=== PATIENT | female | born 1970 | race Caucasian/White ===

== ENCOUNTER 2019-05-28 10:30 | Outpatient (CLI) | payer MEDICAID ==
[2019-05-28] MEDS ORDERED: METH5TAB2 PO (11:33)
[2019-05-28 11:34] LABS: BASOPHILS % (AUTO) 0.5 % (0-1); EOSINOPHILS # (AUTO) 0.1 X10'3 (0-0.9); EOSINOPHILS % (AUTO) 1.3 % (0-6); LYMPHOCYTES # (AUTO) 1.3 X10'3 (1.1-4.8); LYMPHOCYTES % (AUTO) 22.8 % (21-51); MEAN CORPUSCULAR HEMOGLOBIN 29.2 PG (27.0-31.0); MEAN CORPUSCULAR HGB CONC 33.4 g/dL (33.0-36.5); MEAN CORPUSCULAR VOLUME 87.5 FL (78-98); MEAN PLATELET VOLUME 7.4 FL (7.4-10.4); MONOCYTES # (AUTO) 0.3 X10'3 (0-0.9); MONOCYTES % (AUTO) 5.8 % (2-12); NEUTROPHILS # (AUTO) 3.9 X10'3 (1.8-7.7); NEUTROPHILS % (AUTO) 69.6 % (42-75); PRE OP HEMOGLOBIN 13.7 g/dL (12.0-16.0); PRE OP PLATELET COUNT 258 X10'3 (140-440); RED BLOOD COUNT 4.69 X10'6 (4.20-5.60); RED CELL DISTRIBUTION WIDTH 14.3 % (11.5-14.5)
[2019-05-28 11:51] LABS: ALBUMIN 3.4 G/DL (3.4-5.0); ALBUMIN/GLOBULIN RATIO 0.9 (1.1-1.5); ALKALINE PHOSPHATASE 63 IU/L (46-116); BLOOD UREA NITROGEN 13 MG/DL (7-18); BUN/CREATININE RATIO 13.5 (6.6-38.0); CALCIUM 8.7 MG/DL (8.5-10.1); CHLORIDE 107 MMOL/L (99-107); CREATININE 0.96 MG/DL (0.40-0.90); PRE OP ALT 6 U/L (30-65); PRE OP ANION GAP 3 (8-16); PRE OP AST 16 U/L (10-37); PRE OP BILIRUB, TOTAL 0.2 MG/DL (0.0-1.0); PRE OP GLUCOSE 104 MG/DL (70-104); PRE OP POTASSIUM 4.4 MMOL/L (3.4-5.1); PRE OP SODIUM 141 MMOL/L (135-145); TOTAL PROTEIN 7.2 G/DL (6.4-8.2); eGFR 62 ML/MIN
== END 2019-05-28 23:59 | disposition home or self-care (01) ==
LOC: PRE-OP 10:30 → EDSTATUS 06-04 09:00
PROVIDERS: ATTEND Orthopaedic Surgery Hand Surgery
DX: Z01.818 Encounter for other preprocedural examination (principal); G56.01 Carpal tunnel syndrome, right upper limb; M65.321 Trigger finger, right index finger; M65.331 Trigger finger, right middle finger; M65.322 Trigger finger, left index finger; M65.332 Trigger finger, left middle finger
CPT/HCPCS: 36415; 80053; 85025; 93005

== ENCOUNTER 2019-08-23 08:06 | Day surgery (SDC) | payer MEDICAID ==
[2019-08-17 12:00] LABS: BASOPHILS % (AUTO) 0.4 % (0-1); EOSINOPHILS # (AUTO) 0.1 X10'3 (0-0.9); EOSINOPHILS % (AUTO) 1.2 % (0-6); LYMPHOCYTES % (AUTO) 30.7 % (21-51); MEAN CORPUSCULAR HEMOGLOBIN 29.6 PG (27.0-31.0); MEAN CORPUSCULAR HGB CONC 33.1 g/dL (33.0-36.5); MEAN CORPUSCULAR VOLUME 89.5 FL (78-98); MEAN PLATELET VOLUME 7.9 FL (7.4-10.4); MONOCYTES # (AUTO) 0.5 X10'3 (0-0.9); MONOCYTES % (AUTO) 7.4 % (2-12); NEUTROPHILS % (AUTO) 60.3 % (42-75); PRE OP HEMATOCRIT 40.5 % (35.0-45.0); PRE OP HEMOGLOBIN 13.4 g/dL (12.0-16.0); PRE OP PLATELET COUNT 225 X10'3 (140-440); RED BLOOD COUNT 4.52 X10'6 (4.20-5.60); RED CELL DISTRIBUTION WIDTH 14.4 % (11.5-14.5)
[2019-08-17 12:09] LABS: ALBUMIN 3.4 G/DL (3.4-5.0); ALBUMIN/GLOBULIN RATIO 0.9 (1.1-1.5); ALKALINE PHOSPHATASE 66 IU/L (46-116); BLOOD UREA NITROGEN 9 MG/DL (7-18); BUN/CREATININE RATIO 10.2 (6.6-38.0); CALCIUM 8.6 MG/DL (8.5-10.1); CHLORIDE 104 MMOL/L (99-107); CREATININE 0.88 MG/DL (0.40-0.90); PRE OP ALT 12 U/L (30-65); PRE OP ANION GAP 7 (8-16); PRE OP AST 15 U/L (10-37); PRE OP BILIRUB, TOTAL 0.4 MG/DL (0.0-1.0); PRE OP GLUCOSE 79 MG/DL (70-104); PRE OP POTASSIUM 4.3 MMOL/L (3.4-5.1); PRE OP SODIUM 142 MMOL/L (135-145); TOTAL CARBON DIOXIDE 30.6 MMOL/L (24-32); TOTAL PROTEIN 7.3 G/DL (6.4-8.2); eGFR 68 ML/MIN
[2019-08-23] VITALS (15 sets, daily range): BP systolic 96–113; BP diastolic 61–70
[~2019-08-23] VITALS: Ht 167.6 cm; Wt 75.8 kg
[~2019-08-23 08:06] MED LIST: BACI1TAB8 PO; METH5TAB2 PO; ceFAZolin 2gm in dextrose, iso 50 ML IV ONE; famotidine 20mg tablet PO ONE; ringers solution, lacted 1,000 ML IV SCH
[2019-08-23] MEDS ORDERED: BUPIVAcaine/PF 2.5mg/ml (0.25%) 10ml vial ONE (08:51)
[2019-08-23] MEDS ORDERED: ringers solution, lacted 1,000 ML IV SCH ×2 (11:21→12:14)
[2019-08-23] MEDS ORDERED: morphine 2 MG/ML inj. syringe IV PRN ×2 (11:25→12:15)
[2019-08-23] MEDS ORDERED: proCHLORperazine 10 MG/2 ml inj IV PRN (11:25)
[2019-08-23] MEDS ORDERED: meperidine/PF 25mg/ml syringe IV PRN ×3 (11:25)
[2019-08-23] MEDS ORDERED: morphine 4 MG/ML inj SYRINge IV PRN ×2 (11:25→12:15)
[2019-08-23] MEDS ORDERED: ondansetron/PF 4mg/2ml inj IV PRN ×2 (11:25→12:15)
[2019-08-23] MEDS ORDERED: acetaminophen 1,000mg/100ml IV 100 ML IV PRN (11:25)
[2019-08-23] MEDS ORDERED: fentaNYL/PF 50MCG/1 ML 2ML syringe ONE ×2 (11:54→11:57)
[2019-08-23] MEDS ORDERED: midazolam 2 mg/2 ml injection ONE (11:54)
[2019-08-23] MEDS ORDERED: MIDAZolam 1mg/ml 10ml vial ONE (11:57)
[2019-08-23] MEDS ORDERED: hydrALAZINE 20mg/ml inj. IV PRN (12:15)
[2019-08-23] MEDS ORDERED: labetalol 20mg/4ml (5mg/ml) syringe IV PRN (12:15)
[2019-08-23] MEDS ORDERED: fentaNYL/PF 50MCG/1 ML 2ML syringe IV PRN ×2 (12:15)
--- NOTE | 2019-08-23 12:20 | NUR ---
RECEIVED FROM OR VIA [facility] ACCOMPANIED BY ANESTHESIOLOGIST DR DURBIN, REPORT GIVEN. PT SLEEPING WITHOUT COMPLAINT OF PAIN. 20 GAUGE PIV L WRIST PATENT AND RUNNING LR AT 100 ML HR.XEROFORM, WEBRIL,KERLIX, BIAS DRESSING TO RIGHT HAND CDI, R UE ELEVATED AND ICE APPLIED. VSS, SKIN PINK AND WARM, QUINTERO, GOOD CAP REFILL.
--- NOTE | 2019-08-23 14:40 | NUR ---
AWAKE AND ALERT WITHOUT COMPLAINT OF PAIN. 20 GAUGE PIV L WRIST DC/D WITH CATH TIP INTACT .XEROFORM, WEBRIL,KERLIX, BIAS DRESSING TO RIGHT HAND CDI, R UE ELEVATED AND ICE APPLIED. VSS, SKIN PINK AND WARM, QUINTERO, GOOD CAP REFILL. TOLERATING FLUIDS. DISCHARGE INSTRUCTIONS GIVEN AND PT VERBALIZED UNDERSTANDING. TRANSPORTED VIA WHEELCHAIR TO TRANSPORT VAN, TO HOME.
== END 2019-08-23 14:40 | disposition home or self-care (01) ==
LOC: PAS 08:06
PROVIDERS: ATTEND Orthopaedic Surgery Hand Surgery
DX: G56.01 Carpal tunnel syndrome, right upper limb (principal); M65.321 Trigger finger, right index finger; M65.331 Trigger finger, right middle finger; Z11.59 Encounter for screening for other viral diseases; F43.10 Post-traumatic stress disorder, unspecified; F17.210 Nicotine dependence, cigarettes, uncomplicated; F41.9 Anxiety disorder, unspecified; F32.9 Major depressive disorder, single episode, unspecified; M19.90 Unspecified osteoarthritis, unspecified site; Z88.8 Allergy status to other drugs, medicaments and biological substances; Z79.899 Other long term (current) drug therapy; Z98.890 Other specified postprocedural states
CPT/HCPCS: 26055; 29848; 36415; 80053; 82948; 85025; J2250; J3010; J3490; U0003; A4215; A7000; J7120

== ENCOUNTER 2020-07-24 05:58 | Day surgery (SDC) | payer MEDICAID ==
[2020-07-17 10:27] LABS: BASOPHILS % (AUTO) 0.4 % (0-1); EOSINOPHILS # (AUTO) 0.1 X10'3 (0-0.9); EOSINOPHILS % (AUTO) 1.8 % (0-6); LYMPHOCYTES # (AUTO) 1.8 X10'3 (1.1-4.8); LYMPHOCYTES % (AUTO) 40.1 % (21-51); MEAN CORPUSCULAR HEMOGLOBIN 29.4 PG (27.0-31.0); MEAN CORPUSCULAR HGB CONC 32.9 g/dL (33.0-36.5); MEAN CORPUSCULAR VOLUME 89.5 FL (78-98); MONOCYTES # (AUTO) 0.3 X10'3 (0-0.9); MONOCYTES % (AUTO) 6.9 % (2-12); NEUTROPHILS # (AUTO) 2.3 X10'3 (1.8-7.7); NEUTROPHILS % (AUTO) 50.8 % (42-75); PRE OP HEMATOCRIT 41.1 % (35.0-45.0); PRE OP HEMOGLOBIN 13.5 g/dL (12.0-16.0); PRE OP PLATELET COUNT 244 X10'3 (140-440); RED BLOOD COUNT 4.59 X10'6 (4.20-5.60); RED CELL DISTRIBUTION WIDTH 13.9 % (11.5-14.5)
[2020-07-17 10:55] LABS: ALBUMIN 3.4 G/DL (3.4-5.0); ALBUMIN/GLOBULIN RATIO 0.9 (1.1-1.5); ALKALINE PHOSPHATASE 74 IU/L (46-116); BLOOD UREA NITROGEN 12 MG/DL (7-18); BUN/CREATININE RATIO 13.5 (6.6-38.0); CALCIUM 8.3 MG/DL (8.5-10.1); CHLORIDE 104 MMOL/L (99-107); CREATININE 0.89 MG/DL (0.40-0.90); PRE OP ANION GAP 6 (8-16); PRE OP AST 20 U/L (10-37); PRE OP BILIRUB, TOTAL 0.3 MG/DL (0.0-1.0); PRE OP GLUCOSE 82 MG/DL (70-104); PRE OP POTASSIUM 4.4 MMOL/L (3.4-5.1); PRE OP SODIUM 140 MMOL/L (135-145); TOTAL CARBON DIOXIDE 30.2 MMOL/L (24-32); TOTAL PROTEIN 7.1 G/DL (6.4-8.2); eGFR 67 ML/MIN
[2020-07-17 11:05] LABS: PRE OP ALT 8 U/L (30-65)
[~2020-07-24] VITALS: Ht 167.6 cm; Wt 79.0 kg
[~2020-07-24 05:58] MED LIST changes: -BACI1TAB8 PO; -ceFAZolin 2gm in dextrose, iso 50 ML IV ONE; +cefazolin/dext.iso 2gm/100ml IV ONE
[2020-07-24 06:05] VITALS: BP 117/69
[2020-07-24] MEDS ORDERED: LIDOcaine 1% (10mg/ml) 2ml vial ONE (06:23)
[2020-07-24] MEDS ORDERED: BUPIVAcaine/PF 2.5 mg/ml (0.25%) 30ml vial ONE (07:06)
[2020-07-24] MEDS ORDERED: LIDOcaine 1% 30ml preserv. free vial ONE (07:21)
[2020-07-24] MEDS ORDERED: propofol 10mg/ml 20ml vial IV ONE (08:10)
[2020-07-24] MEDS ORDERED: sevoflurane 250ml liquid IH ONE (08:10)
[2020-07-24] MEDS ORDERED: fentaNYL/PF 50MCG/1 ML 2ML syringe ONE (08:16)
[2020-07-24] MEDS ORDERED: MIDAZolam 1 MG/ML 5ML VIAL ONE (08:16)
[2020-07-24] MEDS ORDERED: 0.9 % SODIUM CHLORIDE 10 ML VIAL ONE (08:26)
[2020-07-24] MEDS ORDERED: ketorolac trometh. 30mg/ml inj. ONE (08:26)
[2020-07-24 08:53] VITALS: BP 122/66
--- NOTE | 2020-07-24 08:53 | NUR ---
FROM OR ON [facility] WITH DR. ACUNA AT SIDE. DEEPLY SLEEPING. ORAL AIRWAY IN PLACE. JAW LIFT DONE UPON ARRIVAL. SNORING. LEFT HAND DRESSING CDI. IV PATENT. SKIN WARM DRY. NOT RESPONDING AT THIS TIME, VSS.
[2020-07-24 09:03] VITALS: BP 133/76
[2020-07-24 09:13] VITALS: BP 142/78
[2020-07-24 09:23] VITALS: BP 133/75
--- NOTE | 2020-07-24 09:23 | NUR ---
STILL VERY DEEPLY ASLEEP. BUT NO LONGER IS SNORING. HAND REMAINS WARM, BRISK CAP REFILL. ORAL AIRWAY CONTINUES.
[2020-07-24 09:33] VITALS: BP 133/70
--- NOTE | 2020-07-24 09:38 | NUR ---
WOKE UP. AIRWAY OPUT. VSS, IV DCD. FINGERS WARM, MOVE WELL. NO CO PAIN. DRESSED. DC TO HOME VIA [facility] TRANSPORT. ESCORTED OUT VIA WC. ALL QUESTIONS ANSWERED, STATES UNDERSTANDS.
== END 2020-07-24 09:43 | disposition home or self-care (01) ==
LOC: PAS 05:58
PROVIDERS: ATTEND Orthopaedic Surgery Hand Surgery
DX: G56.02 Carpal tunnel syndrome, left upper limb (principal); M65.322 Trigger finger, left index finger; M65.332 Trigger finger, left middle finger; F17.210 Nicotine dependence, cigarettes, uncomplicated; F43.10 Post-traumatic stress disorder, unspecified; F41.0 Panic disorder [episodic paroxysmal anxiety]; F32.9 Major depressive disorder, single episode, unspecified; F41.9 Anxiety disorder, unspecified; M19.90 Unspecified osteoarthritis, unspecified site; Z20.822 Contact with and (suspected) exposure to COVID-19; Z88.8 Allergy status to other drugs, medicaments and biological substances; Z98.890 Other specified postprocedural states; Z79.899 Other long term (current) drug therapy
CPT/HCPCS: 26055; 29848; 36415; 80053; 82948; 85025; 93005; A6222; J1885; J2001; J2250; J2704; J3010; J3490; U0003; U0005; A4215; A7000; J7120